=== PATIENT | male | born 2000 | race Two or more races ===

== ENCOUNTER 2019-05-06 21:21 | Emergency (ER) | payer SELFPAY ==
[2019-05-06 21:31] VITALS: BP 114/70; PULSE 71; TEMP 98.3; BMI 23.7
== END 2019-05-06 22:35 | disposition left against medical advice (07) ==
LOC: JER 21:21 → JERFT 21:21 → JER 22:55
DX: Z53.21 Procedure and treatment not carried out due to patient leaving prior to being seen by health care provider (principal)
CPT/HCPCS: 99281-25

== ENCOUNTER 2019-06-19 09:11 | Emergency (ER) | payer OTHER ==
[2019-06-19 09:21] VITALS: BP 125/72; PULSE 73; TEMP 97.4; BMI 23.7
--- NOTE | 2019-06-19 09:36 | PDOC ---
History of Present Illness - General Chief Complaint: Cold Symptoms Stated Complaint: SOB Time Seen by Provider: 06/19/19 09:26 History Source: Patient - History of Present Illness Timing/Duration: reports: other Severity: reports: mild Associated Symptoms: reports: cough, nasal congestion, sore throat. denies: fever/chills, headache, wheezing Past History - Past Medical History Allergies/Adverse Reactions: Allergies Allergy/AdvReac Type Severity Reaction Status Date / Time shellfish derived Allergy Verified 06/19/19 09:21 Asthma: Yes COPD: No Dementia: No Diabetes: No Dialysis: No GI Disorders: No Disorders: No - Immunization History Immunization Up to Date: Yes - Suicide/Smoking/Psychosocial Hx Smoking History: Never smoked Have you smoked in the past 12 months: Yes Information on smoking cessation initiated: No Hx Alcohol Use: No Drug/Substance Use Hx: Yes (MARIJUANA) Review of Systems - Review of Systems Constitutional: No: Fever HEENTM: Yes: Throat Pain Respiratory: Yes: Cough. No: Wheezing Cardiac (ROS): Yes: Chest Tightness *Physical Exam - Vital Signs Last Vital Signs Temp Pulse Resp BP Pulse Ox 97.4 F L 73 18 125/72 100 06/19/19 09:19 06/19/19 09:19 06/19/19 09:19 06/19/19 09:19 06/19/19 09:19 - Physical Exam General Appearance: Yes: Appropriately Dressed. No: Apparent Distress HEENT: positive: Normal ENT Inspection, Normal Voice, TMs Normal, Pharynx Normal. negative: Scleral Icterus (R), Scleral Icterus (L) Neck: positive: Supple. negative: Lymphadenopathy (R), Lymphadenopathy (L) Respiratory/Chest: positive: Lungs Clear, Normal Breath Sounds. negative: Respiratory Distress, Wheezing Cardiovascular: positive: Regular Rate, S1, S2 Integumentary: positive: Dry, Warm Neurologic: positive: Fully Oriented, Alert, Normal Mood/Affect Medical Decision Making - Medical Decision Making 06/19/19 09:31 18-year-old male, history of childhood asthma, here with nasal congestion with mostly dry cough for 3 days. Does report intermittent chest tightness at home and does have alb pump and nebs at home but has not been using same for unclear reasons. No sob, wheezing, f/c see exam M/l viral URI H/o childhood asthma and no current tightness/sob/wheezing Stable and in NAD w/ clear lungs Dc w/ supportive tx, asthma meds prn To return as needed *DC/Admit/Observation/Transfer Diagnosis at time of Disposition: URI (upper respiratory infection) Qualifiers: URI type: unspecified viral URI Qualified Code(s): J06.9 - Acute upper respiratory infection, unspecified - Discharge Dispostion Disposition: HOME Condition at time of disposition: Good - Referrals - Patient Instructions Printed Discharge Instructions: DI for Viral Upper Respiratory Infection -- Adult Additional Instructions: You most likely have a viral URI. Drink plenty fluids and take [id number]-[id number] medication as needed. For chest tightness or wheezing, please continue to use your nebulizer and pump Return to ER as needed - Post Discharge Activity Forms/Work/School Notes: Back to Work
== END 2019-06-19 09:39 | disposition home or self-care (01) ==
LOC: JERFT 09:11
DX: J06.9 Acute upper respiratory infection, unspecified (principal); B97.89 Other viral agents as the cause of diseases classified elsewhere
CPT/HCPCS: 99282-25

== ENCOUNTER 2019-06-20 18:28 | Emergency (ER) | payer OTHER ==
--- NOTE | 2019-06-20 18:36 | PDOC ---
Rapid Medical Evaluation Chief Complaint: Cold Symptoms Medical Evaluation: Allergies Allergy/AdvReac Type Severity Reaction Status Date / Time shellfish derived Allergy Verified 06/19/19 09:21 06/20/19 18:35 Patient presents to ED with complaints of: cough, congested and feels tight when taking deep breath patient on brief exam: vss, lcta Patient ordered for: none Patient to proceed to the ED Discharge Disposition - Diagnosis Cough, Chest tightness - Discharge Dispostion Disposition: HOME Condition at time of disposition: Improved - Prescriptions Prescriptions: Albuterol 0.083% Nebulizer Leola [Ventolin 0.083% Nebulizer Soln -] 1 amp NEB ASDIR #30 amp Prednisone [Deltasone] 40 mg PO DAILY #8 tablet - Referrals - Patient Instructions Printed Discharge Instructions: Asthma -- Adult Additional Instructions: Take medications as directed and return to ED as needed - Post Discharge Activity Work/School Note: Back to Work
[2019-06-20 18:40] VITALS: BP 128/76; PULSE 78; TEMP 98.4; BMI 23.7
[2019-06-20] MEDS ORDERED: predniSONE 20 MG TABLET (UD) PO ONE (19:03)
[2019-06-20] MEDS ORDERED: ALBUTEROL SO4 2.5/IPRATROPIUM 0.5 INH SOL 3 ML VIAL.NEB. NEB ONE ×2 (19:03→19:06)
[2019-06-20] MEDS ORDERED: predniSONE 20 MG TABLET (UD) ONE (19:05)
--- NOTE | 2019-06-20 19:30 | PDOC ---
History of Present Illness - General Chief Complaint: Cold Symptoms Stated Complaint: ASTHMA/EVALUATION Time Seen by Provider: 06/20/19 18:52 History Source: Patient - History of Present Illness Timing/Duration: reports: just prior to arrival Past History - Past Medical History Allergies/Adverse Reactions: Allergies Allergy/AdvReac Type Severity Reaction Status Date / Time shellfish derived Allergy Verified 06/20/19 18:35 Home Medications: Ambulatory Orders Albuterol 0.083% Nebulizer Leola [Ventolin 0.083% Nebulizer Soln -] 1 amp NEB ASDIR #30 amp 06/20/19 Albuterol Sulfate 0.5% [Ventolin 0.5% -] 1 neb IH QID PRN 06/20/19 Prednisone [Deltasone] 40 mg PO DAILY #8 tablet 06/20/19 Asthma: Yes COPD: No Dementia: No Diabetes: No Dialysis: No GI Disorders: No Disorders: No - Immunization History Immunization Up to Date: Yes - Suicide/Smoking/Psychosocial Hx Smoking History: Never smoked Have you smoked in the past 12 months: Yes Information on smoking cessation initiated: No Hx Alcohol Use: No Drug/Substance Use Hx: No Review of Systems - Review of Systems Constitutional: No: Chills, Fever Respiratory: No: Shortness of Breath, Wheezing Cardiac (ROS): Yes: Chest Tightness *Physical Exam - Vital Signs Last Vital Signs Temp Pulse Resp BP Pulse Ox 98.4 F 78 19 128/76 99 06/20/19 18:33 06/20/19 18:33 06/20/19 18:33 06/20/19 18:33 06/20/19 18:33 - Physical Exam General Appearance: Yes: Appropriately Dressed. No: Apparent Distress HEENT: positive: Normal Voice Neck: positive: Supple Respiratory/Chest: positive: Lungs Clear, Normal Breath Sounds, Other (trace wheeze). negative: Respiratory Distress Cardiovascular: positive: Regular Rate, S1, S2 Integumentary: positive: Dry, Warm Neurologic: positive: Fully Oriented, Alert, Normal Mood/Affect ED Treatment Course - Medications Given in the ED: ED Medications Discontinued Medications Generic Name Dose Route Start Last Admin Trade Name Freq PRN Reason Stop Dose Admin Albuterol/Ipratropium 1 amp 06/20/19 19:03 06/20/19 19:09 Duoneb - NEB 06/20/19 19:04 1 amp ONCE ONE Administration Prednisone 60 mg 06/20/19 19:03 06/20/19 19:09 Deltasone - PO 06/20/19 19:04 60 mg ONCE ONE Administration Medical Decision Making - Medical Decision Making 06/20/19 19:24 18-year-old male, history of childhood asthma, seen here for URI sxs yesterday and discharged with supportive sxs and to use his asthma meds as needed, here w / continued chest tightness. States meds not working at home. No cough at this time and denies f/c. No h/o PNA. Vapes "sometimes" but stopped after sxs began. No tob use see exam Mild asthma flare Stable w/ ?trace wheezing -nebs -pred -reassess 06/20/19 19:45 Pt improved w/ nebs, states tightness resolved. Lungs clear on re-eval, able to ambulate without SOB. Dc w/ pred burst, strongly cautioned against vaping *DC/Admit/Observation/Transfer Diagnosis at time of Disposition: Cough, Chest tightness - Discharge Dispostion Disposition: HOME Condition at time of disposition: Improved - Prescriptions Prescriptions: Albuterol 0.083% Nebulizer Leola [Ventolin 0.083% Nebulizer Soln -] 1 amp NEB ASDIR #30 amp Prednisone [Deltasone] 40 mg PO DAILY #8 tablet - Referrals - Patient Instructions Printed Discharge Instructions: Asthma -- Adult Additional Instructions: Take medications as directed and return to ED as needed - Post Discharge Activity
== END 2019-06-20 19:50 | disposition home or self-care (01) ==
LOC: JERFT 18:28
PROC: 3E0F7GC Introduction of Other Therapeutic Substance into Respiratory Tract, Via Natural or Artificial Opening (ICD-10-PCS; principal; 2019-06-20)
DX: J45.909 Unspecified asthma, uncomplicated (principal)
CPT/HCPCS: 99281-25